=== PATIENT | male | born 1995 | race Caucasian/White ===

== ENCOUNTER 2025-03-09 13:08 | Emergency (ER) | payer BC, OTHER, SELFPAY ==
[2025-03-09] MEDS ORDERED: Lidocaine 1%/Epinephrine 1:100K 10 ML VIAL ONE (13:43)
== END 2025-03-09 14:38 | disposition home or self-care (01) ==
LOC: BURERS 13:08
DX: S90.851A Superficial foreign body, right foot, initial encounter (principal); W25.XXXA Contact with sharp glass, initial encounter
CPT/HCPCS: 28190